=== PATIENT | male | born 1990 | race Caucasian/White ===

== ENCOUNTER → 2016-10-09 | Outpatient (CLI) | payer OTHER ==
--- NOTE | ~2016-10-09 | CR236 ---
[facility] A Service of [facility] RADIOLOGY TEXT RESULTS PATIENT: GLEN SLADE LOCATION: [facility] : [birth year] UNIT #: [id number] AGE: [address]: Bubba Pelaez MD SEX: M ORDER DR: [id number] [facility] [address] [place], [place] [address] [id number] O MR#: [id number] Acc #: [id number] NAME: GLEN SLADE : 1990 SEX: M STUDY DATE/TIME: 10/09/2016 8:29 UNIT: [facility] ROOM: STUDY DESCRIPTION: CR Small Bowel Sbft W Films Attending Physician: Bubba Pelaez M.D. Referring Physician: Bubba Pelaez M.D. Ordering Physician: Bubba Pelaez M.D. Primary Care Physician: Taco Hull M.D. MEDICAL IMAGING REPORT This report is preliminary unless electronic signature is present EXAM Small bowel follow-through INDICATION Abdominal pain. 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 He has had symptoms for [address] scan was in January 2016. The patient was noted to have some dilated loops of small bowel. TECHNIQUE Patient is administered barium and multiple overhead images of the abdomen were obtained followed by fluoroscopic spot images. FINDINGS Initial bowel gas pattern is unremarkable. Small bowel fold pattern also appears within normal limits. No obvious contour abnormality of the stomach is seen. The small bowel transit time was 2 hours which is within normal limits. Spot images of the ileocecal valve does not show any evidence of stricture. Total fluoroscopy time was 0.3 minutes and a total of 6 fluoroscopic images were obtained. IMPRESSION Normal small bowel follow through. Dictated by... Blossom Katz M.D. THIS IS AN ELECTRONICALLY VERIFIED REPORT Blossom Katz M.D. at 10/10/2016 12:55 PM MART/lory TD: 10/10/2016 09:09 JOB #: [id number] [facility] A Service of [facility] RADIOLOGY TEXT RESULTS PATIENT: GLEN SLADE LOCATION: [facility] : [birth year] UNIT #: [id number] AGE: [address]: Bubba Pelaez MD SEX: M ORDER DR: MEDICAL IMAGING REPORT Page 1 of 1 COPY
== END | disposition home or self-care (01) ==
LOC: CRAD 08:12
DX: R10.9 Unspecified abdominal pain (principal); Z87.898 Personal history of other specified conditions
CPT/HCPCS: 74250